=== PATIENT | male | born 1960 | race Caucasian/White ===

== ENCOUNTER 2017-07-19 18:10 | Inpatient (IN) | payer MEDICAID ==
[~2017-07-19] VITALS: Ht 175.3 cm; Wt 63.2 kg
--- NOTE | ~2017-07-19 | HP ---
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 This 57-year-old male was admitted to [facility] for possible pneumonia. He was stabilized in the hospital there as much as possible and was found to have evidence of increased fluid retention in the lungs was taken to pulmonary evaluation and has also had creatinine increasing up to 4.5. Transfer to [facility] was needed for nephrology evaluation and further evaluation. PAST MEDICAL HISTORY: Significant for diabetes, hypothyroidism, neuropathy, nephropathy, COPD, pneumonia, recent CHF, heart murmur, history of kidney injury, and DKA which is what patient was initially admitted for. PAST SURGICAL HISTORY: Includes his back surgery. MEDICATIONS: Include gabapentin, Levothroid, Levemir, Tylenol with codeine, and sliding scale of regular insulin. ALLERGIES: The patient has no known drug allergies. SOCIAL HISTORY: Does smoke at least half pack per day. Does drink alcohol on a weekly basis. The patient does not use any illicit drugs. REVIEW OF SYSTEMS: Indicate generalized fatigue and weakness. The patient has had numbness in the extremities, which is chronic. He has had weight loss. He has had decreased urine output over the last 24 hours, increased thirst. The patient has had chronic cough. PHYSICAL EXAMINATION: VITAL SIGNS: At the time of history and physical as below. GENERAL: He is a frail 57-year-old gentleman that is awake, alert, in the ICU, in no acute distress. HEENT: Pupils equal, round and react to light. Extraocular movements are intact. Oral cavity and oropharynx otherwise clear. NECK: No cervical or pharyngeal adenopathy. No nuchal rigidity. LUNGS: Coarse rhonchi heard bilaterally. HEART: Regular rate and rhythm with II/ systolic ejection murmur. ABDOMEN: Soft, nontender, positive bowel sounds. No hepatosplenomegaly or masses. EXTREMITIES: He has some clubbing that is present. NEUROLOGIC: He is able to move all 4 extremities. ASSESSMENT: 1. History of DKA, now resolved. 2. Acute renal insufficiency. 3. Pneumonia. 4. Heart murmur. 5. History of methamphetamine use that has been negative recently. PLAN: To do a cardiology consultation with Dr. Owens for a possible transesophageal echo. We will check echo now. Nephrology consultation with . HISTORY AND PHYSICAL [id number] KAYLEE SOLORZANO. Pulmonary consultation with Dr. Fontenot. We will have the patient on IV fluids, antibiotics and updraft treatments. Check laboratory appropriately. TRANSINT:[id number] Voice Confirmation ID: [id number] DOCUMENT ID: [id number] SANDI GR MD at 1725 CC: [id number] DICTATION DATE: 07/20/17 1117 EXPANSION ENVELOPE MAKER HAND: 07/20/17 1152 ADM IN [facility] [address] [place] [address]
--- NOTE | ~2017-07-19 | EC ---
PATIENT:KAYLEE SOLORZANO DATE OF SERVICE: 07/19/17 SEX: M MEDICAL RECORD: [id number] DATE OF : 62 LOCATION:D.M2 D.213 AGE OF PATIENT: 57 ADMISSION DATE: 07/19/17 REFERRING PHYSICIAN: INTERPRETING PHYSICIAN: JOSI OWENS MD ECHOCARDIOGRAM REPORT ECHO CHARGES 4 ECHO COMPLETE Date: 07/20 CLINICAL DIAGNOSIS: CHF ECHOCARDIOGRAPHIC MEASUREMENTS (adult normal given) AC root (d.<3.7cm) 3.6 cm LV Septum d (<1.2 cm> 1.3 cm Valve Excursion 1.5 cm LV Septum (systole) 1.5 cm Left Atria (s.<4.0cm> 3.6 cm LVPW d(<1.2cm) 1.3 cm RV (d.<2.3cm) 3.4 cm LVPW (sytole) 1.5 cm LV diastole(<5.6CM) 4.2 cm MV E-F(>70mm/sec) cm LV systole 3.0 cm LVOT Diameter 1.8 cm MV exc.(>10mm) cm Est.ejection fraction (50-75%) % DOPPLER: LVIT cm/sec A 99.0 cm/sec E 69.0 cm/sec LA cm/sec RVSP 37 mmHg LVOT 136 cm/sec AOP1/2T m/s Asc. Ao 144 cm/sec RVOT 118 cm/sec RA cm/sec PA 133 cm/sec AV Gradient Peak 8.33 mmHg AV Mean 4.85 mmHg AV Area 2.5 cm MV Gradient Peak 5.01 mmHg MV Mean 2.00 mmHg MV Area cm COMMENTS: Hides And Skins Colorer: Kennedy CERON Risk Management Internship: 1 Dr. Owens TAPE# PACS Pericardial Effusion N DATE OF SERVICE: FINDINGS: 1. Left ventricular chamber size is within normal limits. Left ventricular systolic function is normal. Overall ejection fraction estimated at 60%. 2. Left atrium is within normal limits at 3.6 cm. Right atrium and right ventricular chamber sizes are mildly dilated. 3. Valvular structures: Mitral valve has a lesion on the posterior leaflet. 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 The remaining valvular structures have normal structure and motion. ECHOCARDIOGRAM REPORT [id number] KAYLEE SOLORZANO 4. Doppler interrogation reveals only trace mitral regurgitation, mild tricuspid regurgitation. No other valvular insufficiency or stenosis. Pulmonary systolic pressure is estimated 37 mmHg. 5. No evidence of pericardial effusion or left ventricular thrombus. TRANSINT:[id number] Voice Confirmation ID: [id number] DOCUMENT ID: [id number] JOSI OWENS MD at 0956 CC: SANDI GR [id number] DICTATION DATE: 07/20/17 1004 FUNDING COORDINATOR: 07/20/17 1104 DIS IN 07/26/17 [id number] [place] [address]
[2017-07-19 22:40] VITALS: BP 113/67
[2017-07-19] MEDS ORDERED: NEURONTIN 300300 MG PO (23:28)
[2017-07-19] MEDS ORDERED: SYNTHROID175 MCG PO (23:29)
[2017-07-19] MEDS ORDERED: LEVEMIR100 U/M1 SC (23:30)
[2017-07-19] MEDS ORDERED: TYLENOL #4 W/CO1 TAB PO (23:31)
[2017-07-19] MEDS ORDERED: NOVOLIN R100 U/ML (23:32)
[2017-07-19 23:37] VITALS: BP 113/67; BMI 20.4
[2017-07-20] VITALS (26 sets, daily range): BP systolic 84–113; BP diastolic 51–90; Ht 175.3 cm; Wt 63.2 kg
[2017-07-20 00:34] LABS: BASOPHILS 0.2 % (0-2); EOSINOPHILS 3.2 % (0-7); HEMATOCRIT 29.4 % (42.0-54.0); HEMOGLOBIN 9.8 g/dL (13.5-17.5); IMMATURE GRANULOCYTES 1.7 % (0-5); LYMPHOCYTES 13.8 % (15-50); MCH 29.8 pg (26.0-34.0); MCHC 33.3 g/dL (31.0-37.0); MCV 89.4 fL (80.0-100.0); MEAN PLATELET VOLUME 9.9 fL (7.4-10.4); MONOCYTES 9.8 % (2-11); NEUTROPHILS 71.3 % (40-80); PLATELET COUNT 238 10x3/uL (130-400); RBC 3.29 10x6/uL (4.20-6.10); WBC 10.2 10x3/uL (4.8-10.8)
[2017-07-20 00:38] LABS: ANION GAP 15.1 mmol/L (8-16); CALCIUM 8.8 mg/dL (8.5-10.1); CARBON DIOXIDE 28.3 mmol/L (21.0-32.0); CREATININE - SERUM 4.5 mg/dL (0.6-1.3); POTASSIUM - SERUM 4.4 mmol/L (3.5-5.1)
[2017-07-20 01:16] LABS: APPEARANCE CLOUDY (CLEAR); BILIRUBIN NEGATIVE (NEGATIVE); COLOR YELLOW (YELLOW); GLUCOSE NEGATIVE (NEGATIVE); KETONE NEGATIVE (NEGATIVE); NITRITE NEGATIVE (NEGATIVE); PROTEIN TRACE mg/dL (NEGATIVE); UROBILINOGEN NORMAL (NORMAL)
[2017-07-20 01:18] LABS: AMORPHOUS SEDIMENT >1+ /lpf (NONE SEEN); BACTERIA MODERATE /hpf (NONE SEEN); EPITHELIAL CELLS 0-5 /hpf (0-5); RED CELLS - URINE 0-5 /hpf (0-5); WHITE CELLS - URINE 0-5 /hpf (0-5)
[2017-07-20 06:46] LABS: BASOPHILS 0.2 % (0-2); EOSINOPHILS 3.5 % (0-7); HEMATOCRIT 28.6 % (42.0-54.0); HEMOGLOBIN 9.2 g/dL (13.5-17.5); IMMATURE GRANULOCYTES 2.5 % (0-5); LYMPHOCYTES 12.8 % (15-50); MCH 29.2 pg (26.0-34.0); MCHC 32.2 g/dL (31.0-37.0); MCV 90.8 fL (80.0-100.0); MEAN PLATELET VOLUME 10.2 fL (7.4-10.4); PLATELET COUNT 237 10x3/uL (130-400); RBC 3.15 10x6/uL (4.20-6.10); RDW 14.1 % (11.5-14.5); WBC 10.3 10x3/uL (4.8-10.8)
[2017-07-20 07:03] LABS: ALBUMIN 1.8 g/dL (3.4-5.0); ANION GAP 13.5 mmol/L (8-16); BILIRUBIN - TOTAL 0.28 mg/dL (0.2-1.3); CALCIUM 8.7 mg/dL (8.5-10.1); CARBON DIOXIDE 27.9 mmol/L (21.0-32.0); CREATININE - SERUM 4.3 mg/dL (0.6-1.3); POTASSIUM - SERUM 4.4 mmol/L (3.5-5.1); PROTEIN - SERUM 6.2 g/dL (6.4-8.2)
[2017-07-20 11:59] LABS: ERYTHROCYTE SEDIMENTATION RATE 88 mm/hr (0-20)
[2017-07-20 17:14] LABS: APPEARANCE CLEAR (CLEAR); BILIRUBIN NEGATIVE (NEGATIVE); COLOR YELLOW (YELLOW); GLUCOSE 500 mg/dL (NEGATIVE); KETONE NEGATIVE (NEGATIVE); NITRITE NEGATIVE (NEGATIVE); PROTEIN NEGATIVE (NEGATIVE); UROBILINOGEN NORMAL (NORMAL)
[2017-07-20 17:22] LABS: BACTERIA FEW /hpf (NONE SEEN); RED CELLS - URINE 0-5 /hpf (0-5); WHITE CELLS - URINE OCC /hpf (0-5)
[2017-07-20 17:58] LABS: CREATININE - URINE 37.5 mg/dL (30-125); PRO/CRE RATIO URINE 0.9 mg/g; PROTEIN - URINE 32.3 mg/dL (0.0-11.9)
[2017-07-21] VITALS (16 sets, daily range): BP systolic 87–113; BP diastolic 48–72
[2017-07-21 05:04] LABS: BASOPHILS 0.1 % (0-2); EOSINOPHILS 2.5 % (0-7); HEMATOCRIT 28.4 % (42.0-54.0); HEMOGLOBIN 9.3 g/dL (13.5-17.5); IMMATURE GRANULOCYTES 4.5 % (0-5); LYMPHOCYTES 10.3 % (15-50); MCH 29.6 pg (26.0-34.0); MCHC 32.7 g/dL (31.0-37.0); MCV 90.4 fL (80.0-100.0); MEAN PLATELET VOLUME 9.9 fL (7.4-10.4); MONOCYTES 9.5 % (2-11); NEUTROPHILS 73.1 % (40-80); PLATELET COUNT 277 10x3/uL (130-400); RBC 3.14 10x6/uL (4.20-6.10); RDW 13.6 % (11.5-14.5)
[2017-07-21 05:08] LABS: WBC 13.4 10x3/uL (4.8-10.8)
[2017-07-21 05:32] LABS: ALBUMIN 1.7 g/dL (3.4-5.0); ANION GAP 14.5 mmol/L (8-16); BILIRUBIN - TOTAL 0.3 mg/dL (0.2-1.3); CALCIUM 8.4 mg/dL (8.5-10.1); CARBON DIOXIDE 25.8 mmol/L (21.0-32.0); CREATININE - SERUM 3.3 mg/dL (0.6-1.3); MAGNESIUM - SERUM 1.5 mg/dL (1.8-2.4); POTASSIUM - SERUM 4.3 mmol/L (3.5-5.1); PROTEIN - SERUM 5.9 g/dL (6.4-8.2); THYROID STIMULATING HORMONE 7.87 uIU/mL (0.36-3.74)
[2017-07-21 13:21] LABS: SPE - A/G RATIO 0.6 (0.7-1.7); SPE - ALBUMIN 2.2 g/dL (2.9-4.4); SPE - ALPHA-1 GLOBULIN 0.6 g/dL (0.0-0.4); SPE - ALPHA-2 GLOBULIN 1.7 g/dL (0.4-1.0); SPE - BETA GLOBULIN 0.9 g/dL (0.7-1.3); SPE - GAMMA GLOBULIN 0.5 g/dL (0.4-1.8); SPE - M-SPIKE Not Observed g/dL (Not Observed); SPE - TOTAL PROTEIN 5.9 g/dL (6.0-8.5)
[2017-07-22 01:28] VITALS: BP 137/62
[2017-07-22 05:36] VITALS: BP 96/53
[2017-07-22 06:29] LABS: BASOPHILS 0.2 % (0-2); EOSINOPHILS 2.1 % (0-7); HEMOGLOBIN 8.4 g/dL (13.5-17.5); IMMATURE GRANULOCYTES 2.5 % (0-5); LYMPHOCYTES 11.6 % (15-50); MCH 29.6 pg (26.0-34.0); MCHC 32.3 g/dL (31.0-37.0); MCV 91.5 fL (80.0-100.0); MEAN PLATELET VOLUME 9.8 fL (7.4-10.4); MONOCYTES 8.1 % (2-11); NEUTROPHILS 75.5 % (40-80); RBC 2.84 10x6/uL (4.20-6.10); RDW 13.4 % (11.5-14.5)
[2017-07-22 06:40] LABS: PLATELET COUNT 338 10x3/uL (130-400)
[2017-07-22 06:55] LABS: ALBUMIN 1.6 g/dL (3.4-5.0); ANION GAP 13.2 mmol/L (8-16); BILIRUBIN - TOTAL 0.1 mg/dL (0.2-1.3); CALCIUM 8.2 mg/dL (8.5-10.1); CARBON DIOXIDE 25.6 mmol/L (21.0-32.0); CREATININE - SERUM 2.8 mg/dL (0.6-1.3); POTASSIUM - SERUM 3.8 mmol/L (3.5-5.1); PROTEIN - SERUM 5.5 g/dL (6.4-8.2)
[2017-07-22 08:36] VITALS: BP 109/62
[2017-07-22 11:52] VITALS: BP 101/50
[2017-07-22 13:53] LABS: BARTONELLA - HENSELAE IGG Negative titer (Neg:<1:320); BARTONELLA - HENSELAE IGM Negative titer (Neg:<1:100); BARTONELLA - QUINTANA IGG Negative titer (Neg:<1:320); BARTONELLA - QUINTANA IGM Negative titer (Neg:<1:100)
[2017-07-22 15:27] LABS: Q FEVER PHASE I AB Negative (Neg:<1:16); Q FEVER PHASE II AB Negative (Neg:<1:16)
[2017-07-22 15:40] VITALS: BP 101/55
[2017-07-22 20:37] VITALS: BP 116/66
[2017-07-23 00:46] VITALS: BP 119/67
[2017-07-23 05:50] VITALS: BP 132/68
[2017-07-23 07:55] VITALS: BP 130/72
[2017-07-23 11:11] LABS: BASOPHILS 0.2 % (0-2); EOSINOPHILS 1.3 % (0-7); HEMATOCRIT 25.5 % (42.0-54.0); HEMOGLOBIN 8.1 g/dL (13.5-17.5); IMMATURE GRANULOCYTES 2.5 % (0-5); LYMPHOCYTES 11.8 % (15-50); MCH 29.6 pg (26.0-34.0); MCHC 31.8 g/dL (31.0-37.0); MCV 93.1 fL (80.0-100.0); MEAN PLATELET VOLUME 9.9 fL (7.4-10.4); MONOCYTES 6.5 % (2-11); NEUTROPHILS 77.7 % (40-80); PLATELET COUNT 342 10x3/uL (130-400); RBC 2.74 10x6/uL (4.20-6.10); RDW 13.6 % (11.5-14.5); WBC 11.8 10x3/uL (4.8-10.8)
[2017-07-23 11:26] LABS: ALBUMIN 1.6 g/dL (3.4-5.0); ANION GAP 13.5 mmol/L (8-16); BILIRUBIN - TOTAL 0.1 mg/dL (0.2-1.3); CREATININE - SERUM 2.4 mg/dL (0.6-1.3); PROTEIN - SERUM 5.1 g/dL (6.4-8.2)
[2017-07-23 11:28] LABS: POTASSIUM - SERUM 4.5 mmol/L (3.5-5.1)
[2017-07-23 11:37] VITALS: BP 112/66
[2017-07-23 13:18] LABS: LEGIONELLA ANTIGEN - URINE Negative (Negative)
[2017-07-23 15:35] VITALS: BP 112/69
[2017-07-23 20:00] VITALS: BP 119/73
[2017-07-24 01:00] VITALS: BP 130/77
[2017-07-24 05:30] VITALS: BP 125/69
[2017-07-24 07:07] LABS: BASOPHILS 0.1 % (0-2); HEMATOCRIT 25.1 % (42.0-54.0); HEMOGLOBIN 8.1 g/dL (13.5-17.5); IMMATURE GRANULOCYTES 1.6 % (0-5); LYMPHOCYTES 11.5 % (15-50); MCH 29.7 pg (26.0-34.0); MCHC 32.3 g/dL (31.0-37.0); MCV 91.9 fL (80.0-100.0); MEAN PLATELET VOLUME 9.3 fL (7.4-10.4); MONOCYTES 6.3 % (2-11); NEUTROPHILS 79.5 % (40-80); PLATELET COUNT 314 10x3/uL (130-400); RBC 2.73 10x6/uL (4.20-6.10); RDW 13.6 % (11.5-14.5); WBC 12.2 10x3/uL (4.8-10.8)
[2017-07-24 07:37] LABS: ALBUMIN 1.6 g/dL (3.4-5.0); ANION GAP 12.1 mmol/L (8-16); CALCIUM 8.1 mg/dL (8.5-10.1); CARBON DIOXIDE 27.4 mmol/L (21.0-32.0); CREATININE - SERUM 1.9 mg/dL (0.6-1.3); POTASSIUM - SERUM 4.5 mmol/L (3.5-5.1); PROTEIN - SERUM 5.5 g/dL (6.4-8.2)
[2017-07-24 07:42] LABS: BILIRUBIN - TOTAL 0.1 mg/dL (0.2-1.3)
[2017-07-24 08:52] VITALS: BP 134/83
[2017-07-24 11:35] VITALS: BP 130/81
[2017-07-24 16:21] VITALS: BP 138/76
[2017-07-24 20:59] VITALS: BP 127/74
[2017-07-25 02:21] VITALS: BP 108/68
[2017-07-25 06:13] VITALS: BP 121/75
[2017-07-25 06:57] LABS: BASOPHILS 0.1 % (0-2); HEMATOCRIT 25.7 % (42.0-54.0); HEMOGLOBIN 8.3 g/dL (13.5-17.5); IMMATURE GRANULOCYTES 1.5 % (0-5); LYMPHOCYTES 10.6 % (15-50); MCH 29.5 pg (26.0-34.0); MCHC 32.3 g/dL (31.0-37.0); MCV 91.5 fL (80.0-100.0); MEAN PLATELET VOLUME 9.5 fL (7.4-10.4); MONOCYTES 10.9 % (2-11); NEUTROPHILS 75.9 % (40-80); PLATELET COUNT 326 10x3/uL (130-400); RBC 2.81 10x6/uL (4.20-6.10); RDW 13.5 % (11.5-14.5); WBC 11.4 10x3/uL (4.8-10.8)
[2017-07-25 07:35] LABS: ALBUMIN 1.7 g/dL (3.4-5.0); ANION GAP 12.3 mmol/L (8-16); BILIRUBIN - TOTAL 0.1 mg/dL (0.2-1.3); CALCIUM 7.9 mg/dL (8.5-10.1); CARBON DIOXIDE 27.1 mmol/L (21.0-32.0); CREATININE - SERUM 1.7 mg/dL (0.6-1.3); POTASSIUM - SERUM 4.4 mmol/L (3.5-5.1); PROTEIN - SERUM 5.7 g/dL (6.4-8.2)
[2017-07-25 08:15] VITALS: BP 121/76
[2017-07-25 11:53] VITALS: BP 126/78
[2017-07-25 15:46] VITALS: BP 131/77
[2017-07-25 21:22] VITALS: BP 134/75
[2017-07-26 01:10] VITALS: BP 111/72
[2017-07-26 05:09] VITALS: BP 115/70
[2017-07-26 05:38] LABS: BASOPHILS 0.1 % (0-2); EOSINOPHILS 1.1 % (0-7); HEMATOCRIT 23.9 % (42.0-54.0); HEMOGLOBIN 7.7 g/dL (13.5-17.5); IMMATURE GRANULOCYTES 1.7 % (0-5); LYMPHOCYTES 19.8 % (15-50); MCH 29.5 pg (26.0-34.0); MCHC 32.2 g/dL (31.0-37.0); MCV 91.6 fL (80.0-100.0); MEAN PLATELET VOLUME 9.5 fL (7.4-10.4); MONOCYTES 9.2 % (2-11); NEUTROPHILS 68.1 % (40-80); PLATELET COUNT 315 10x3/uL (130-400); RBC 2.61 10x6/uL (4.20-6.10); RDW 13.6 % (11.5-14.5)
[2017-07-26 05:39] LABS: WBC 7.5 10x3/uL (4.8-10.8)
[2017-07-26 05:41] LABS: ALBUMIN 1.6 g/dL (3.4-5.0); ANION GAP 11.7 mmol/L (8-16); BILIRUBIN - TOTAL 0.12 mg/dL (0.2-1.3); CALCIUM 7.8 mg/dL (8.5-10.1); CARBON DIOXIDE 27.2 mmol/L (21.0-32.0); CREATININE - SERUM 1.7 mg/dL (0.6-1.3); POTASSIUM - SERUM 3.9 mmol/L (3.5-5.1); PROTEIN - SERUM 5.5 g/dL (6.4-8.2)
[2017-07-26 07:28] VITALS: BP 140/73
[2017-07-26 09:10] LABS: ANA REFLEX - DIRECT Negative (Negative)
[2017-07-26 11:08] VITALS: BP 114/68
[2017-07-26 16:41] VITALS: BP 134/74
[2017-07-26] MEDS ORDERED: PROTONIX40 MG PO (16:54)
[2017-07-26] MEDS ORDERED: SYNTHROID200 MC1 PO (16:54)
[2017-07-26] MEDS ORDERED: LEVAQUIN500 MG PO (16:54)
[2017-07-26] MEDS ORDERED: NICODERM C1 PATCH .3 TRANSDERM (16:54)
[2017-07-26 17:54] LABS: ANCA - ANTIMYELOPEROXIDASE <9.0 U/mL (0.0-9.0); ANCA - ANTIPROTEINASE 3 <3.5 U/mL (0.0-3.5); ANCA - ATYPICAL <1:20 titer (Neg:<1:20); ANCA - CYTOPLASMIC <1:20 titer (Neg:<1:20); ANCA - PERINUCLEAR <1:20 titer (Neg:<1:20)
[2017-07-26 20:08] LABS: CYCLIC CITRULL PEPTIDE IGG/IGA 4 units (0-19)
== END 2017-07-26 20:19 | disposition home or self-care (01) | DRG 682 ==
LOC: D.M2 18:10 → D.ICU 18:10 → D.SDCHOLD 18:10 → D.ICU 22:31 → D.M2 07-21 15:43
PROVIDERS: Family Medicine; Internal Medicine Nephrology; Internal Medicine Pulmonary Disease; Student in an Organized Health Care Education/Training Program
DX: N17.9 Acute kidney failure, unspecified (principal); J18.9 Pneumonia, unspecified organism; E11.10 Type 2 diabetes mellitus with ketoacidosis without coma; J96.21 Acute and chronic respiratory failure with hypoxia; N39.0 Urinary tract infection, site not specified; J44.1 Chronic obstructive pulmonary disease with (acute) exacerbation; I38 Endocarditis, valve unspecified; J81.1 Chronic pulmonary edema; J44.0 Chronic obstructive pulmonary disease with (acute) lower respiratory infection; D64.9 Anemia, unspecified; E03.9 Hypothyroidism, unspecified; F17.200 Nicotine dependence, unspecified, uncomplicated; Z91.14 Patient's other noncompliance with medication regimen; R01.1 Cardiac murmur, unspecified; F15.11 Other stimulant abuse, in remission; I50.9 Heart failure, unspecified